=== PATIENT | male | born 1980 | race Caucasian/White ===

== ENCOUNTER 2017-02-26 23:26 | Emergency (ER) | payer MEDICAID ==
[~2017-02-26] VITALS: Ht 172.7 cm; Wt 91.6 kg
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
--- OUTSIDE RECORDS SUMMARY | 2017-02-26 23:34 | XMS REPORT ---
Author Author JOEY KLINE Organization [employer] Address Unknown Phone Unavailable Care Team Providers Care State Farm Agent Team Member Name Role Phone JOEY KLINE CP Unavailable Allergies No Known Allergies Problems Problem Type Condition Code Onset Dates Condition Status Problem Type 2 diabetes mellitus without complication E11.9 Active Problem Essential hypertension, hypertension with unspecified goal I10 Active Problem Encounter for dental examination Z01.20 Active Problem Sleep apnea, unspecified type G47.30 Active Problem Depression, unspecified depression type F32.9 Active Problem Seizure disorder G40.909 Active Medications No Known Medications Results No Known Results Summary Purpose [employer] Submission
--- OUTSIDE RECORDS SUMMARY | 2017-02-26 23:34 | XMS REPORT ---
Author Author JOEY KLINE [facility] e[employer] Address Unknown Phone Unavailable Care Team Providers Care Math Specialist Name Role Phone JOEY KLINE CP Unavailable Allergies, Adverse Reactions, Alerts Substance Reaction Event Type Penicillin G Benzathine Info Not Available Drug Allergy Problems Problem Type Condition Code Onset Dates Condition Status Problem Type 2 diabetes mellitus without complication E11.9 Active Problem Essential hypertension, hypertension with unspecified goal I10 Active Problem NICKO (obstructive sleep apnea) G47.33 Active Problem Sleep apnea, unspecified type G47.30 Active Assessment NICKO (obstructive sleep apnea) G47.33 Active Problem Depression, unspecified depression type F32.9 Active Problem Seizure disorder G40.909 Active Medications Medication Code System Code Instructions Start Date End Date Status Dosage Metformin HCl [facility] [address]-33 1000 MG Orally Twice a day 2 tablet with meals Carbamazepine [facility] [address]-70 200 MG Orally Three times a day 1 tablet Atorvastatin Calcium [facility] [address]-13 40 MG Orally Once a day 1 tablet Glucometer ND 0 1 glucometer Dx: E11.9 June 05, 2015 as directed Lisinopril [facility] [address]-53 10 mg Orally Once a day June 05, 2015 1 tablet Lantus [facility] [address]-42 100 UNIT/ML Subcutaneous Once a day 28 units Dilantin [facility] [address]-18 100 MG Orally Three times a day 1 capsule Test strips ND 0 ... 2 times a day June 05, 2015 as directed Triamcinolone Acetonide [facility] [address]-18 0.1 % Externally Twice a day June 21, 2015 1 application to affected area Insulin Syringe-Needle U-100 ND 0 28G X 1/2 2 times a day June 05, 2015 as directed PredniSONE [facility] [address]-23 20 mg Orally Once a day June 19, 2015June 1 tablet BuPROPion HCl (XL) [facility] [address]-90 150 MG Orally Once a day 1 tablet in the morning Procedures Procedure Coding System Code Date Office Visit, Est Pt., Level 3 CPT-4 39419 June 21, 2015 Vital Signs Date/Time: June 21, 2015 Temperature 98.1 F Weight 218 lbs Height 68 in BMI 33.14 Index Blood Pressure Diastolic 70 mmHg Blood Pressure Systolic 120 mmHg Cardiac Monitoring Heart Rate 88 bpm Results No Known Results Summary Purpose [employer] Submission
--- OUTSIDE RECORDS SUMMARY | 2017-02-26 23:34 | XMS REPORT ---
Author Author JOEY KLINE [facility] Address [address] [place] [address] Care Team Providers Care Placement Interviewer Name Role Phone JOEY KLINE Unavailable PROBLEMS Type Condition ICD9-CM Code BVC95-AQ Code Onset Dates Condition Status SNOMED Code Problem Depression, unspecified depression type F32.9 Active 64537585 Problem Seizure disorder G40.909 Active 977160658 Problem Sleep apnea, unspecified type G47.30 Active 78101388 Problem Type 2 diabetes mellitus without complication E11.9 Active 02016430 Problem Essential hypertension, hypertension with unspecified goal I10 Active 62918350 Problem Pain in right foot M79.671 Active 39252770 Problem Insomnia, unspecified type G47.00 Active 158169201 Problem Encounter for dental examination Z01.20 Active 827885269 Problem Mixed hyperlipidemia E78.2 Active 271148650 Problem Pain of left foot M79.672 Active 02705622 Problem NICKO (obstructive sleep apnea) G47.33 Active 61293581 ALLERGIES No Known Allergies SOCIAL HISTORY No smoking Hx information available PLAN OF CARE VITAL SIGNS MEDICATIONS Medication Instructions Dosage Frequency Start Date End Date Duration Status Carbamazepine 200 mg Orally 2 times a day 2 am 1 pm 12h Active RESULTS No Results PROCEDURES No Known procedures IMMUNIZATIONS No Known Immunizations
--- OUTSIDE RECORDS SUMMARY | 2017-02-26 23:34 | XMS REPORT ---
Author Author RUDI BARAJAS [facility] e[employer] Address Unknown Phone Unavailable Care Team Providers Care Sanitation Inspector Name Role Phone RUDI BARAJAS CP Unavailable Allergies, Adverse Reactions, Alerts Substance Reaction Event Type Penicillin G Benzathine Info Not Available Drug Allergy Problems Problem Type Condition Code Onset Dates Condition Status Problem Essential hypertension, hypertension with unspecified goal I10 Active Problem Depression, unspecified depression type F32.9 Active Problem Type 2 diabetes mellitus without complication E11.9 Active Assessment Dermatitis due to plants, including poison iker, sumac, and oak L25.5 Active Problem Seizure disorder G40.909 Active Problem Sleep apnea, unspecified type G47.30 Active Medications Medication Code System Code Instructions Start Date End Date Status Dosage Test strips NDC 0 ... 2 times a day June 05, 2015 as directed PredniSONE [facility] [address]-04 20 mg Orally Once a day June 19, 2015June 1 tablet Dilantin [facility] [address]-74 100 MG Orally Three times a day 1 capsule Lisinopril [facility] [address]-61 10 mg Orally Once a day June 05, 2015 1 tablet Atorvastatin Calcium [facility] [address]-26 40 MG Orally Once a day 1 tablet Glucometer ND 0 1 glucometer Dx: E11.9 June 05, 2015 as directed Carbamazepine [facility] [address]-23 200 MG Orally Three times a day 1 tablet BuPROPion HCl (XL) [facility] [address]-66 150 MG Orally Once a day 1 tablet in the morning Lantus [facility] [address]-52 100 UNIT/ML Subcutaneous Once a day 28 units Metformin HCl [facility] [address]-19 1000 MG Orally Twice a day 2 tablet with meals Insulin Syringe-Needle U-100 NDC 0 28G X 1/2 2 times a day June 05, 2015 as directed Procedures Procedure Coding System Code Date DEPO MEDROL 40 MG/ML CPT-4 J1030 June 19, 2015 THER/PROPH/DIAG INJ, SC/IM CPT-4 08892 June 19, 2015 Office Visit, Est Pt., Level 3 CPT-4 36444 June 19, 2015 Vital Signs Date/Time: June 19, 2015 Temperature 97.7 F Weight 219.2 lbs Height 68 in BMI 33.33 Index Blood Pressure Diastolic 78 mmHg Blood Pressure Systolic 116 mmHg Cardiac Monitoring Heart Rate 92 bpm Results No Known Results Summary Purpose [employer] Submission
--- OUTSIDE RECORDS SUMMARY | 2017-02-26 23:34 | XMS REPORT ---
Author Author JOEY KLINE [facility] Address [address] [place] [address] Care Team Providers Care Farmworker Bulbs Name Role Phone JOEY KLINE Unavailable PROBLEMS Type Condition ICD9-CM Code FBE19-ET Code Onset Dates Condition Status SNOMED Code Problem Depression, unspecified depression type F32.9 Active 59723543 Problem Seizure disorder G40.909 Active 869938253 Problem Sleep apnea, unspecified type G47.30 Active 30721692 Problem Type 2 diabetes mellitus without complication E11.9 Active 24289505 Problem Essential hypertension, hypertension with unspecified goal I10 Active 99083172 Problem Pain in right foot M79.671 Active 30081830 Problem Insomnia, unspecified type G47.00 Active 785633120 Problem Encounter for dental examination Z01.20 Active 453158726 Problem Mixed hyperlipidemia E78.2 Active 081165616 Problem Pain of left foot M79.672 Active 18675461 Problem NICKO (obstructive sleep apnea) G47.33 Active 05265812 ALLERGIES No Known Allergies SOCIAL HISTORY No smoking Hx information available PLAN OF CARE VITAL SIGNS MEDICATIONS Medication Instructions Dosage Frequency Start Date End Date Duration Status Lancing Device - subcutaneously Once a day Dx:E11.9 as directed Apr, 0 days Active RESULTS No Results PROCEDURES No Known procedures IMMUNIZATIONS No Known Immunizations
--- OUTSIDE RECORDS SUMMARY | 2017-02-26 23:34 | XMS REPORT ---
Author Author JOEY KLINE [facility] Address [address] [place] [address] Care Team Providers Care Wastewater Treatment Plant Supervisor Name Role Phone JOEY KLINE Unavailable PROBLEMS Type Condition ICD9-CM Code EUM62-WR Code Onset Dates Condition Status SNOMED Code Problem Depression, unspecified depression type F32.9 Active 21493630 Problem Seizure disorder G40.909 Active 549750870 Problem Sleep apnea, unspecified type G47.30 Active 09813432 Problem Type 2 diabetes mellitus without complication E11.9 Active 56019013 Problem Essential hypertension, hypertension with unspecified goal I10 Active 75751905 Problem Pain in right foot M79.671 Active 61084870 Problem Insomnia, unspecified type G47.00 Active 295888888 Problem Encounter for dental examination Z01.20 Active 467677056 Problem Mixed hyperlipidemia E78.2 Active 023662622 Problem Pain of left foot M79.672 Active 25023135 Problem NICKO (obstructive sleep apnea) G47.33 Active 72762773 ALLERGIES No Information SOCIAL HISTORY Never Assessed PLAN OF CARE VITAL SIGNS MEDICATIONS Medication Instructions Dosage Frequency Start Date End Date Duration Status BuPROPion HCl (XL) 150 MG Orally Once a day 1 tablet in the morning 24h 90 days Active Fenofibrate 54 MG Orally Once a day 1 tablet with a meal 24h June, 90 days Active RESULTS No Results PROCEDURES No [...]
--- OUTSIDE RECORDS SUMMARY | 2017-02-26 23:34 | XMS REPORT ---
Author Author JOEY KLINE Organization [employer] Address Unknown Phone Unavailable Care Team Providers Care Pastry Cook Name Role Phone JOEY KLINE CP Unavailable Allergies No Known Allergies Problems Problem Type Condition Code Onset Dates Condition Status Problem Sleep apnea, unspecified type G47.30 Active Problem Encounter for dental examination Z01.20 Active Problem Mixed hyperlipidemia E78.2 Active Problem NICKO (obstructive sleep apnea) G47.33 Active Problem Depression, unspecified depression type F32.9 Active Problem Seizure disorder G40.909 Active Problem Type 2 diabetes mellitus without complication E11.9 Active Problem Essential hypertension, hypertension with unspecified goal I10 Active Medications No Known Medications Results No Known Results Summary Purpose [employer]Clinical[employer] Submission
--- OUTSIDE RECORDS SUMMARY | 2017-02-26 23:34 | XMS REPORT ---
Author Author JOEY KLINE [facility] Address [address] [place] [address] Care Team Providers Care Full Time Name Role Phone JOEY KLINE Unavailable PROBLEMS Type Condition ICD9-CM Code LUK78-XT Code Onset Dates Condition Status SNOMED Code Problem Depression, unspecified depression type F32.9 Active 45342108 Problem Seizure disorder G40.909 Active 094804960 Problem Sleep apnea, unspecified type G47.30 Active 62469440 Problem Type 2 diabetes mellitus without complication E11.9 Active 31606978 Problem Essential hypertension, hypertension with unspecified goal I10 Active 68923060 Problem Pain in right foot M79.671 Active 70281738 Problem Insomnia, unspecified type G47.00 Active 195496239 Problem Encounter for dental examination Z01.20 Active 885644697 Problem Mixed hyperlipidemia E78.2 Active 512056262 Problem Pain of left foot M79.672 Active 81087113 Problem NICKO (obstructive sleep apnea) G47.33 Active 00682879 ALLERGIES No Known Allergies SOCIAL HISTORY No smoking Hx information available PLAN OF CARE VITAL SIGNS MEDICATIONS No Known Medications RESULTS No Results PROCEDURES No Known procedures IMMUNIZATIONS No Known Immunizations
--- OUTSIDE RECORDS SUMMARY | 2017-02-26 23:35 | XMS REPORT ---
Author Author JOEY KLINE Organization [employer] Address Unknown Phone Unavailable Care Team Providers Care Dining Manager Name Role Phone JOEY KLINE CP Unavailable [...] hypertension with unspecified goal I10 Active Medications Medication Code System Code Instructions Start Date End Date Status Dosage Metformin HCl [facility] [address]-50 1000 MG Orally Twice a day 1.5 tab am 1 tab pm Lisinopril [facility] [address]-12 10 mg Orally Once a day 1 tablet BuPROPion HCl (XL) [facility] [address]-10 150 MG Orally Once a day 1 tablet in the morning Fenofibrate [facility] [address]-80 54 MG Orally Once a day July 10, 2015 1 tablet with a meal Atorvastatin Calcium [facility] [address]-48 40 mg Orally Once a day 1 tablet Results No Known Results Summary Purpose [employer]ClinicalWorks Submission
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
--- OUTSIDE RECORDS SUMMARY | 2017-02-26 23:35 | XMS REPORT ---
Author Author JOEY KLINE Organization [employer] Address Unknown Phone Unavailable Care Team Providers Care Computer Teacher Name Role Phone JOEY KLINE CP Unavailable Allergies No Known Allergies Problems Problem Type Condition Code Onset Dates Condition Status Problem Encounter for dental examination Z01.20 Active Problem Type 2 diabetes mellitus without complication E11.9 Active Problem NICKO (obstructive sleep apnea) G47.33 Active Problem Seizure disorder G40.909 Active Problem Sleep apnea, unspecified type G47.30 Active Problem Essential hypertension, hypertension with unspecified goal I10 Active Problem Depression, unspecified depression type F32.9 Active Medications No Known Medications Vital Signs Date/Time: July 02, 2015 Blood Pressure Diastolic 84 mmHg Blood Pressure Systolic 116 mmHg Height 68 in Results No Known Results Summary Purpose eClinicalWorks Submission
--- OUTSIDE RECORDS SUMMARY | 2017-02-26 23:35 | XMS REPORT | Continuity of Care Document ---
Author Author [facility] Organization [facility] Address Unknown Phone Unavailable Allergies There is no data. Medications There is no data. Problems Date Dx Coded Attending Type Code Diagnosis Diagnosed By 08/09/2015 JOEY KLINE Ot G47.33 OBSTRUCTIVE SLEEP APNEA (ADULT) (PEDIATR 08/09/2015 JOEY KLINE Ot I10 ESSENTIAL (PRIMARY) HYPERTENSION 08/25/2015 JOEY KLINE Ot G47.33 OBSTRUCTIVE SLEEP APNEA (ADULT) (PEDIATR 08/25/2015 JOEY KLINE Ot I10 ESSENTIAL (PRIMARY) HYPERTENSION Procedures There is no data. Results There is no data. Encounters ACCT No. Visit Date/Time Discharge Status Pt. Type Provider Facility Loc./Unit Complaint [id number] 08/08/2015 21:18:00 08/09/2015 06:00:00 DIS Outpatient JOEY KLINE [facility] SLEEP
[2017-02-27] MEDS ORDERED: BUPR150T7 (00:46)
[2017-02-27] MEDS ORDERED: LISI10TA2 (00:46)
[2017-02-27] MEDS ORDERED: ATOR40TA70 (00:46)
[2017-02-27] MEDS ORDERED: METF1000 (00:46)
[2017-02-27] MEDS ORDERED: TRAZ-28 (00:46)
[2017-02-27] MEDS ORDERED: PHEN100C11 (00:46)
[2017-02-27] MEDS ORDERED: CARB200T6 (00:46)
[2017-02-27] MEDS ORDERED: FENO54TA (00:46)
[2017-02-27] MEDS ORDERED: GLIP5TAB13 (00:46)
[2017-02-27] MEDS ORDERED: INSU100V6 (00:46)
--- NOTE | 2017-02-27 01:24 | ED Lower Extremity ---
General Chief Complaint: Lower Extremity Stated Complaint: LEFT FOOT SWELLING,SHARP PAIN Nursing Triage Note: PT TO ED 7 W/ C/O LT FOOT PAIN ONSET X2WKS AFTER STEPPING ON A NAIL. PT REPORTS IT FELT "OK" AT FIRST BUT SINCE HAS HAD PAIN ET SWELLING. DENIES REDNESS OR DRAINAGE. ALSO DENIES SEEING PCP FOR C/O. STATES "I'M NOT A DR PERSON, THEY SCARE ME." Nursing Sepsis Screen: No Definite Risk Source: patient, other Exam Limitations: no limitations History of Present Illness Time seen by provider: 01:15 Initial Comments Patient presents to ER by private conveyance with a chief complaint that he stepped on a nail approximately 2 weeks ago in his left foot. He didn't have much pain or trouble at that time however aggressively in the last couple days has gotten more swollen and painful and red. It hurts on the lateral side as well as the medial side base of his foot and the top of his foot is swollen and painful to touch. He is diabetic on insulin. He has not been on antibiotics recently nor has he seen any doctor for this foot pain. He thinks last time he had a tetanus shot was 2 or 3 years ago but is not really certain about that. He has a history of epilepsy. His allergy to penicillin is it makes him nauseated. Allergies and Home Medications Allergies Coded Allergies: Penicillins (Verified Allergy, Unknown, 02/27/17) Home Medications Atorvastatin Calcium 40 Mg Tablet, (Reported) Bupropion HCl 150 Mg Tab.er.24h, (Reported) Carbamazepine 200 Mg Tablet, (Reported) Fenofibrate 54 Mg Tablet, (Reported) Glipizide 5 Mg Tablet, (Reported) Insulin Glargine,Hum.rec.anlog 100 Unit/1 Ml Vial, (Reported) Lisinopril 10 Mg Tablet, (Reported) Metformin HCl 1,000 Mg Tablet, (Reported) Phenytoin Sodium Extended 100 Mg Capsule, (Reported) Trazodone HCl 50 Mg Tablet, (Reported) Constitutional: No chills, No fever, No malaise Respiratory: No cough, No short of breath Gastrointestinal: No abdominal pain, No constipation, No diarrhea, No nausea, No vomiting Genitourinary: No discharge, No dysuria Musculoskeletal: see HPI Skin: see HPI Past Tqdtoms-Gqvmrl-Qyggmx Hx Patient Social History Alcohol Use: Denies Use Recreational Drug Use: No Smoking Status: Current Everyday Smoker Type Used: Cigarettes 2nd Hand Smoke Exposure: Yes Recent Foreign Travel: No Contact w/Someone Who Travel: No Recent Infectious Disease Expo: No Recent Hopitalizations: No Physical Abuse: No Sexual Abuse: No Mistreated: No Fear: No Surgeries History of Surgeries: No Respiratory History of Respiratory Disorde: No Cardiovascular History of Cardiac Disorders: Yes Cardiac Disorders: High Cholesterol, Hypertension Neurological History of Neurological Disord: Yes Neurological Disorders: Seizure Disorder Genitourinary History of Genitourinary Disor: No Gastrointestinal History of Gastrointestinal Di: No Musculoskeletal History of Musculoskeletal Dis: No Endocrine History of Endocrine Disorders: Yes Endocrine Disorders: Diabetes, Insulin dep HEENT History of HEENT Disorders: No Cancer History of Cancer: No Psychosocial History of Psychiatric Problem: No Suicide Risk Score: 0 Integumentary History of Skin or Integumenta: No Physical Exam Vital Signs Vital Sign - Last 12Hours 02/27/17 00:21 Temp 97.1 Pulse 90 Resp 20 B/P (MAP) 141/88 (105) Pulse Ox 96 O2 Delivery Room Air Capillary Refill : Less Than 3 Seconds General Appearance: WD/WN, no apparent distress HEENT: PERRL/EOMI, pharynx normal Hips: bilateral hip non-tender, bilateral hip normal inspection, bilateral hip normal range of motion, bilateral hip no evidence of injury Legs: bilateral leg non-tender, bilateral leg normal inspection, bilateral leg normal range of motion, bilateral leg no evidence of injury Knees: bilateral knee non-tender, bilateral knee normal inspection, bilateral knee no evidence of injury Ankles: bilateral ankle non-tender, bilateral ankle normal inspection, bilateral ankle normal range of motion, bilateral ankle no evidence of injury Feet: right foot non-tender, right foot normal inspection, bilateral foot normal range of motion, right foot no evidence of injury, left foot bone tenderness (fourth and fifth metatarsals), left foot pain, left foot soft tissue tenderness, left foot swelling (moderate) Neurologic/Tendon: normal sensation, normal motor functions, normal tendon functions, responds to pain, no evidence tendon injury Neurologic/Psychiatric: no motor/sensory deficits, alert, normal mood/affect, oriented x 3 Skin: warm/dry, other (left foot erythematous) Progress/Results/Core Measures Results/Orders Lab Results Laboratory Tests Test 02/27/17 01:34 Range/Units White Blood Count 13.1 H 4.3-11.0 10^3/uL Red Blood Count 4.68 4.35-5.85 10^6/uL Hemoglobin 14.9 13.3-17.7 G/DL Hematocrit 44 40-54 % Mean Corpuscular Volume 93 80-99 FL Mean Corpuscular Hemoglobin 32 25-34 PG Mean Corpuscular Hemoglobin Concent 34 32-36 G/DL Red Cell Distribution Width 11.9 10.0-14.5 % Platelet Count 233 130-400 10^3/uL Mean Platelet Volume 8.8 7.4-10.4 FL Neutrophils (%) (Auto) 53 42-75 % Lymphocytes (%) (Auto) 38 12-44 % Monocytes (%) (Auto) 7 0-12 % Eosinophils (%) (Auto) 2 0-10 % Basophils (%) (Auto) 0 0-10 % Neutrophils # (Auto) 6.9 1.8-7.8 X 10^3 Lymphocytes # (Auto) 5.0 H 1.0-4.0 X 10^3 Monocytes # (Auto) 0.9 0.0-1.0 X 10^3 Eosinophils # (Auto) 0.3 0.0-0.3 10^3/uL Basophils # (Auto) 0.0 0.0-0.1 10^3/uL Sodium Level 137 135-145 MMOL/L Potassium Level 3.8 3.6-5.0 MMOL/L Chloride Level 99 98-107 MMOL/L Carbon Dioxide Level 24 21-32 MMOL/L Anion Gap 14 5-14 MMOL/L Blood Urea Nitrogen 12 7-18 MG/DL Creatinine 0.81 0.60-1.30 MG/DL Estimat Glomerular Filtration Rate > 60 BUN/Creatinine Ratio 15 Glucose Level 190 H 70-105 MG/DL Calcium Level 9.2 8.5-10.1 MG/DL Total Bilirubin 0.2 0.1-1.0 MG/DL Aspartate Amino Transf (AST/SGOT) 20 5-34 U/L Alanine Aminotransferase (ALT/SGPT) 32 0-55 U/L Alkaline Phosphatase 75 40-136 U/L C-Reactive Protein High Sensitivity 0.69 H 0.00-0.50 MG/DL Total Protein 7.4 6.4-8.2 GM/DL Albumin 4.3 3.2-4.5 GM/DL My Orders Orders - SUKH HURTADO Foot, Left, 3 Views (02/27/17 01:19) Cbc With Automated Diff (02/27/17 01:19) Comprehensive Metabolic Panel (02/27/17 01:19) Hs C Reactive Protein (02/27/17 01:19) Dipht,Pertuss(Acell),Tet Adult (Boostrix (02/27/17 01:30) Vital Signs/I&O Vital Sign - Last 12Hours 02/27/17 00:21 Temp 97.1 Pulse 90 Resp 20 B/P (MAP) 141/88 (105) Pulse Ox 96 O2 Delivery Room Air Blood Pressure Mean: 105 Progress Note : Time: 01:23 Progress Note Foot x-ray for retained foreign body versus possible osteomyelitis. CBC, CMP and CRP looking for evidence of systemic infection. Otherwise okay we would send him home on antibiotics and encourage him to follow-up early next week with his primary care physician. Diagnostic Imaging Diagonstic Imaging: Xray Plain Films/CT/US/NM/MRI: other (left foot) Comments No retained foreign body. No acute osteomyelitis seen. Mild soft tissue swelling. Reviewed: Reviewed by Me Departure Impression Impression: Primary Impression: Nail wound of left foot Qualified Codes: S91.332A - Puncture wound without foreign body, left foot, initial encounter Disposition: HOME, SELF-CARE Condition: Stable Departure-Patient Inst. Decision time for Depature: 02:06 Referrals: JOEY KLINE (PCP/Family) Primary Care Physician Patient Instructions: Diabetes and Infections Add. 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 Take it to completion. Keep your follow-up appointment on 03 March 2017 with your primary care physician. If your foot continues to get more red and swollen or you lose sensation in your foot or you begin to have fevers, nausea, chills, increasing foot pain you should return to the ER. 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 If you're having pain you may take 1000 mg Tylenol and/or 800 mg of ibuprofen every 8 hours as needed. Expect to see some improvement by day 3 or 4. Keep your foot elevated when possible. All discharge instructions reviewed with patient and/or family. Voiced understanding. Scripts Ciprofloxacin HCl (Ciprofloxacin HCl) 750 Mg Tablet 750 MG PO BID for 10 Days, #20 TAB 0 Refills Prov: SUKH HURTADO 02/27/17 Sulfamethoxazole/Trimethoprim (Bactrim Ds Tablet) 1 Each Tablet 1 EACH PO BID for 10 Days, #20 TAB 0 Refills Prov: SUKH HURTADO 02/27/17 Copy Copies To 1: KIMBERLY TELLES TITUS J Feb 27, 2017 01:24
[2017-02-27 01:40] LABS: BASOPHILS % (AUTO) 0 % (0-10); EOSINOPHILS # (AUTO) 0.3 10^3/uL (0.0-0.3); EOSINOPHILS % (AUTO) 2 % (0-10); LYMPHOCYTES % (AUTO) 38 % (12-44); MEAN CORPUSCULAR HEMOGLOBIN 32 PG (25-34); MEAN CORPUSCULAR HGB CONC 34 G/DL (32-36); MEAN CORPUSCULAR VOLUME 93 FL (80-99); MEAN PLATELET VOLUME 8.8 FL (7.4-10.4); MONOCYTES # (AUTO) 0.9 X 10^3 (0.0-1.0); MONOCYTES % (AUTO) 7 % (0-12); NEUTROPHILS # (AUTO) 6.9 X 10^3 (1.8-7.8); NEUTROPHILS % (AUTO) 53 % (42-75); PLATELET COUNT 233 10^3/uL (130-400); RED BLOOD COUNT 4.68 10^6/uL (4.35-5.85); RED CELL DISTRIBUTION WIDTH 11.9 % (10.0-14.5); WHITE BLOOD COUNT 13.1 10^3/uL (4.3-11.0)
[2017-02-27 02:00] LABS: ALANINE AMINOTRANSFERASE 32 U/L (0-55); ALBUMIN 4.3 GM/DL (3.2-4.5); ANION GAP 14 MMOL/L (5-14); ASPARTATE AMINO TRANSFERASE 20 U/L (5-34); BILIRUBIN,TOTAL 0.2 MG/DL (0.1-1.0); BLOOD UREA NITROGEN 12 MG/DL (7-18); BUN/CREATININE RATIO 15; CALCIUM 9.2 MG/DL (8.5-10.1); CARBON DIOXIDE 24 MMOL/L (21-32); CHLORIDE 99 MMOL/L (98-107); CREATININE SERUM 0.81 MG/DL (0.60-1.30); GFR ESTIMATED > 60; GLUCOSE 190 MG/DL (70-105); POTASSIUM 3.8 MMOL/L (3.6-5.0); SODIUM 137 MMOL/L (135-145); TOTAL PROTEIN 7.4 GM/DL (6.4-8.2); hs C REACTIVE PROTEIN 0.69 MG/DL (0.00-0.50)
[2017-02-27] MEDS: TETANUS,DIPTH,PERTUSS P/F (BOOSTRIX) 0.5 ML VIAL IM ONE (02:03)
[2017-02-27] MEDS ORDERED: CIPR750T4 PO (02:21)
[2017-02-27] MEDS ORDERED: SULF1TAB35 PO (02:21)
[2017-02-27 02:25] VITALS: BP 0/0
--- NOTE | 2017-02-27 06:51 | Diagnostic Imaging Report ---
INDICATION: Left foot pain and swelling. FINDINGS: 3 views of left foot show no fracture, dislocation or radiopaque foreign object. IMPRESSION: Negative left foot. Dictated by: Dictated on workstation # [id number]
== END 2017-02-27 02:25 | disposition home or self-care (01) ==
LOC: EDUNIT# 23:26 → ER 23:30
DX: S91.332A Puncture wound without foreign body, left foot, initial encounter (principal); E78.00 Pure hypercholesterolemia, unspecified; I10 Essential (primary) hypertension; G40.909 Epilepsy, unspecified, not intractable, without status epilepticus; E11.9 Type 2 diabetes mellitus without complications; F17.210 Nicotine dependence, cigarettes, uncomplicated; Z79.4 Long term (current) use of insulin; W45.0XXA Nail entering through skin, initial encounter
CPT/HCPCS: 36415; 73630; 80053; 85025; 86141; 90715; 99284

== ENCOUNTER → 2019-01-24 | Outpatient (CLI) | payer MEDICAID ==
[~2019-01-24] MED LIST: ATOR40TA70; BUPR150T7; CARB200T6; CIPR750T4 PO; FENO54TA; GLIP5TAB13; INSU100V6; LISI10TA2; METF-399; PHEN100C11; SULF1TAB35 PO; TRAZ-222
== END ==
LOC: WOUNDCARE 12:28
PROVIDERS: ATTEND Surgery
DX: E11.622 Type 2 diabetes mellitus with other skin ulcer (principal); E11.52 Type 2 diabetes mellitus with diabetic peripheral angiopathy with gangrene; I82.4Y2 Acute embolism and thrombosis of unspecified deep veins of left proximal lower extremity; L03.116 Cellulitis of left lower limb; L97.222 Non-pressure chronic ulcer of left calf with fat layer exposed; I87.332 Chronic venous hypertension (idiopathic) with ulcer and inflammation of left lower extremity; I96 Gangrene, not elsewhere classified
CPT/HCPCS: 99204

== ENCOUNTER → 2019-01-24 | Outpatient (CLI) | payer MEDICAID ==
--- NOTE | 2019-01-24 15:31 | Diagnostic Imaging Report ---
PROCEDURE: US left lower extremity venous. TECHNIQUE: Multiple real-time grayscale images were obtained over the left lower extremity in various projections. Additional duplex Doppler and color Doppler images were also obtained. INDICATION: Leg pain and swelling. FINDINGS: There are no prior studies available for comparison. There is generally good blood flow and compressibility at all levels. There is no evidence for deep venous thrombosis. IMPRESSION: 1. There is no evidence for deep venous thrombosis of the left lower extremity. 2. These results were called to Dr. Brian Hernandez by our sonologist. Dictated by: Dictated on workstation # [id number]
== END ==
LOC: RAD 14:12
PROVIDERS: ATTEND Surgery
DX: I82.4Y2 Acute embolism and thrombosis of unspecified deep veins of left proximal lower extremity (principal); E11.628 Type 2 diabetes mellitus with other skin complications; L97.222 Non-pressure chronic ulcer of left calf with fat layer exposed; I87.332 Chronic venous hypertension (idiopathic) with ulcer and inflammation of left lower extremity; E11.42 Type 2 diabetes mellitus with diabetic polyneuropathy

== ENCOUNTER → 2019-01-31 | Outpatient (CLI) | payer MEDICAID | LOC: WOUNDCARE 13:42 | PROVIDERS: ATTEND Surgery | DX: I96 Gangrene, not elsewhere classified (principal); L03.116 Cellulitis of left lower limb; I87.332 Chronic venous hypertension (idiopathic) with ulcer and inflammation of left lower extremity | CPT/HCPCS: 99212 ==